=== PATIENT | male | born 1965 | race Caucasian/White ===

== ENCOUNTER 2016-12-26 10:37 | Emergency (ER) | payer BC, OTHER ==
[~2016-12-26] VITALS: Ht 177.8 cm; Wt 105.3 kg
[2016-12-26 10:38] VITALS: BP 149/94
[2016-12-26] MEDS ORDERED: LEVO30TA PO (10:59)
[2016-12-26] MEDS ORDERED: GABA-282 PO (10:59)
[2016-12-26] MEDS ORDERED: OMEP40CA2 PO (10:59)
[2016-12-26] MEDS ORDERED: PROP40TA PO (10:59)
[2016-12-26] MEDS ORDERED: BUSP30TA PO (10:59)
[2016-12-26] MEDS ORDERED: ATOR1TAB21 PO (10:59)
[2016-12-26] MEDS ORDERED: METF10004 PO (10:59)
[2016-12-26] MEDS ORDERED: NORT25CA2 PO (11:00)
[2016-12-26] MEDS ORDERED: NAPR500T PO (11:39)
[2016-12-26] MEDS ORDERED: PRED20TA PO (11:39)
[2016-12-26] MEDS ORDERED: AFRI0.0511 (11:39)
== END 2016-12-26 11:52 | disposition home or self-care (01) ==
LOC: M ED 10:37
DX: H69.93 Unspecified Eustachian tube disorder, bilateral (principal); H91.92 Unspecified hearing loss, left ear; Z87.891 Personal history of nicotine dependence; Z91.040 Latex allergy status; Z91.030 Bee allergy status; Z79.899 Other long term (current) drug therapy; Z79.84 Long term (current) use of oral hypoglycemic drugs

== ENCOUNTER 2017-08-21 14:07 | Emergency (ER) | payer BC, SELFPAY ==
[2017-08-21 16:24] LABS: BASO % 0.7 % (0.0-1.0); EOS # 0.1 10^3/uL (0.0-0.50); EOS % 2.3 % (0.0-3.0); HEMATOCRIT 40.8 % (42.0-52.0); HEMOGLOBIN 14.6 g/dl (14.0-18.0); IMMATURE GRANULOCYTE % 0.3 % (0-3.0); LYMPH # 2.2 10^3/uL (1.5-4.5); LYMPH % 36.5 % (24.0-44.0); MEAN CORPUSCULAR HEMOGLOBIN 31.9 pg (27.0-33.0); MEAN CORPUSCULAR HGB CONC 35.8 g/dl (32.0-36.5); MEAN CORPUSCULAR VOLUME 89.3 fl (80.0-96.0); MONO # 0.8 10^3/uL (0.0-0.8); MONO % 12.5 % (0.0-5.0); NEUTROPHILS # 2.9 10^3/uL (1.8-7.7); NEUTROPHILS % 47.7 % (36.0-66.0); PLATELET COUNT, AUTOMATED 167 10^3/uL (150-450); RED BLOOD COUNT 4.57 10^6/uL (4.30-6.10); RED CELL DISTRIBUTION WIDTH 12.1 % (11.5-14.5); WHITE BLOOD COUNT 6.1 10^3/uL (4.0-10.0)
[2017-08-21 16:34] LABS: INR 0.97
[2017-08-21 16:35] LABS: PARTIAL THROMBOPLASTIN TIME 30.7 SECONDS (26.8-37.9)
[2017-08-21 16:53] LABS: ALBUMIN 4.3 GM/DL (3.2-5.2); ALBUMIN/GLOBULIN RATIO 1.26 (1.00-1.93); ALKALINE PHOSPHATASE 103 U/L (45-117); ALT/SGPT 311 U/L (12-78); ANION GAP 9 MEQ/L (8-16); AST/SGOT 165 U/L (7-37); BILIRUBIN,DIRECT 0.3 MG/DL (0.0-0.2); BILIRUBIN,TOTAL 0.7 MG/DL (0.2-1.0); BLOOD UREA NITROGEN 8 MG/DL (7-18); CALCIUM LEVEL 9.2 MG/DL (8.5-10.1); CARBON DIOXIDE LEVEL 27 MEQ/L (21-32); CHLORIDE LEVEL 103 MEQ/L (98-107); CPK CREATINE PHOSPHOKINASE 238 U/L (39-308); CREATININE FOR GFR 0.88 MG/DL (0.70-1.30); GLOMERULAR FILTRATION RATE > 60.0 (>56); GLUCOSE, FASTING 128 MG/DL (70-100); LIPASE 131 U/L (73-393); POTASSIUM SERUM 3.8 MEQ/L (3.5-5.1); SODIUM LEVEL 139 MEQ/L (136-145); TOTAL PROTEIN 7.7 GM/DL (6.4-8.2); TROPONIN I < 0.02 NG/ML (< 0.10)
[2017-08-21 16:54] LABS: NT-PRO BNP 6 PG/ML (<125)
[2017-08-21 16:58] LABS: CK-MB VALUE MASS 1.4 NG/ML (0.0-3.6); FREE T4 1.29 NG/DL (0.76-1.46); MB/CK RELATIVE INDEX 0.58 (< OR =4)
[2017-08-22 08:28] LABS: BEDSIDE GLUCOSE 163 MG/DL (70-105)
== END 2017-08-21 18:08 | disposition home or self-care (01) ==
LOC: M ED 14:07
DX: R53.83 Other fatigue (principal); R79.89 Other specified abnormal findings of blood chemistry; R60.9 Edema, unspecified; I10 Essential (primary) hypertension; E78.5 Hyperlipidemia, unspecified; K21.9 Gastro-esophageal reflux disease without esophagitis; E03.9 Hypothyroidism, unspecified; Z86.73 Personal history of transient ischemic attack (TIA), and cerebral infarction without residual deficits; M54.2 Cervicalgia; K76.0 Fatty (change of) liver, not elsewhere classified; Z87.891 Personal history of nicotine dependence; Z91.040 Latex allergy status; Z91.030 Bee allergy status; Z79.899 Other long term (current) drug therapy; Z79.84 Long term (current) use of oral hypoglycemic drugs
CPT/HCPCS: 71046

== ENCOUNTER 2018-11-06 08:41 | Day surgery (SDC) | payer BC ==
[~2018-11-06] VITALS: Ht 177.8 cm; Wt 97.1 kg
[~2018-11-06 08:41] MED LIST: AFRI0.0511; AMLO2.5T3 PO; ATOR1TAB21 PO; BUSP30TA PO; GABA-843 PO; IRBE75TA5 PO; LEVO30TA PO; LEVO75TA4 PO; METF10004 PO; MONT10TA2 PO; NAPR-837 PO; NORT25CA2 PO; NS 1,000 ML IV ONE; OMEP40CA2 PO; PRED20TA PO; PROP40TA62 PO; RANI1TAB38 PO; SUCR1SUS PO; SUMA25TA3 PO; TRAM50TA2 PO
[2018-11-06] MEDS ORDERED: fentaNYL 100 MCG/2 ML INJECTION (J3010) As Ordered ONE (10:01)
[2018-11-06] MEDS ORDERED: LIDOCAINE 2% INJ 100 MG/5 ML SDV (FOR ANES.) As Ordered ONE (10:01)
[2018-11-06] MEDS ORDERED: PROPOFOL 500 MG/50 ML VIAL As Ordered ONE (10:01)
--- NOTE | 2018-11-06 10:37 | ROOR ---
Patient Name: Gio Mcfadden Procedure Date: 11/06/2018 9:47 AM Date of : 1965 Age: 53 Room: [facility] Gender: Male Note Status: Finalized Procedure: Upper GI endoscopy Indications: Epigastric abdominal pain, Abdominal pain in the right upper quadrant, Heartburn Providers: Dewey Simon MD Referring MD: Elisa Jackson DO Requesting Provider: Medicines: Monitored Anesthesia Care Complications: No immediate complications. Procedure: Pre-Anesthesia Assessment: - Prior to the procedure, a History and Physical was performed, and patient medications and allergies were reviewed. The patient is competent. The risks and benefits of the procedure and the sedation options and risks were discussed with the patient. All questions were answered and informed consent was obtained. Patient identification and proposed procedure were verified by the physician, the nurse and the anesthesiologist in the endoscopy suite. Mental Status Examination: alert and oriented. Airway Examination: normal oropharyngeal airway and neck mobility. Respiratory Examination: clear to auscultation. CV Examination: normal. Prophylactic Antibiotics: The patient does not require prophylactic antibiotics. Prior Anticoagulants: The patient has taken no previous anticoagulant or antiplatelet agents. ASA Grade Assessment: II - A patient with mild systemic disease. After reviewing the risks and benefits, the patient was deemed in satisfactory condition to undergo the procedure. The anesthesia plan was to use monitored anesthesia care (MAC). Immediately prior to administration of medications, the patient was re-assessed for adequacy to receive sedatives. The heart rate, respiratory rate, oxygen saturations, blood pressure, adequacy of pulmonary ventilation, and response to care were monitored throughout the procedure. The physical status of the patient was re-assessed after the procedure. The Endoscope was introduced through the mouth, and advanced to the second part of duodenum. The upper GI endoscopy was accomplished without difficulty. The patient tolerated the procedure well. Findings: The Z-line was irregular and was found 40 cm from the incisors. This was biopsied with a cold forceps for evaluation to rule out Nelson's Esophagus. Estimated blood loss was minimal. No gross lesions were noted in the entire examined stomach. This was biopsied with a cold forceps for Helicobacter pylori testing. Estimated blood loss was minimal. The duodenal bulb, first portion of the duodenum and second portion of the duodenum were normal. Impression: - Z-line irregular, 40 cm from the incisors. Biopsied. - No gross lesions in the stomach. Biopsied. - Normal duodenal bulb, first portion of the duodenum and second portion of the duodenum. Recommendation: - Discharge patient to home (ambulatory). - Use Protonix (pantoprazole) 40 mg PO daily for 6 weeks. Dewey Simon MD Dewey Simon MD 11/06/2018 10:36:55 AM Electronically signed by Dewey Simon MD Number of Addenda: 0 Note Initiated On: 11/06/2018 9:47 AM Estimated Blood Loss: Estimated blood loss was minimal.
--- NOTE | 2018-11-06 10:41 | ROOR ---
Patient Name: Gio Mcfadden Procedure Date: 11/06/2018 9:48 AM Date of : 1965 Age: 53 Room: [facility] Gender: Male Note Status: Finalized Procedure: Colonoscopy Indications: High risk colon cancer surveillance: Personal history of colonic polyps Providers: Dewey Simon MD Referring MD: Elisa Jackson DO Requesting Provider: Medicines: Monitored Anesthesia Care Complications: No immediate complications. Procedure: Pre-Anesthesia Assessment: - Prior to the procedure, a History and Physical was performed, and patient medications and allergies were reviewed. The patient is competent. The risks and benefits of the procedure and the sedation options and risks were discussed with the patient. All questions were answered and informed consent was obtained. Patient identification and proposed procedure were verified by the physician, the nurse and the anesthesiologist in the endoscopy suite. Mental Status Examination: alert and oriented. Airway Examination: normal oropharyngeal airway and neck mobility. Respiratory Examination: clear to auscultation. CV Examination: normal. ASA Grade Assessment: II - A patient with mild systemic disease. After reviewing the risks and benefits, the patient was deemed in satisfactory condition to undergo the procedure. The anesthesia plan was to use monitored anesthesia care (MAC). Immediately prior to administration of medications, the patient was re-assessed for adequacy to receive sedatives. The heart rate, respiratory rate, oxygen saturations, blood pressure, adequacy of pulmonary ventilation, and response to care were monitored throughout the procedure. The physical status of the patient was re-assessed after the procedure. The Colonoscope was introduced through the anus and advanced to 10 cm into the ileum. The colonoscopy was performed without difficulty. The patient tolerated the procedure well. The quality of the bowel preparation was adequate to identify polyps. Findings: The perianal and digital rectal examinations were normal. A 10 mm polyp was found in the sigmoid colon. The polyp was pedunculated. The polyp was removed with a hot snare. Resection and retrieval were complete. Estimated blood loss: none. A patchy area of mildly nodular mucosa was found in the sigmoid colon. Biopsies were taken with a cold forceps for histology. Estimated blood loss was minimal. The retroflexed view of the distal rectum and anal verge was normal and showed no anal or rectal abnormalities. Impression: - One 10 mm polyp in the sigmoid colon, removed with a hot snare. Resected and retrieved. - Nodular mucosa in the sigmoid colon. Biopsied. - The distal rectum and anal verge are normal on retroflexion view. Recommendation: - Discharge patient to home (ambulatory). - Repeat colonoscopy in 3 years for surveillance. Dewey Simon MD Dewey Simon MD 11/06/2018 10:41:20 AM Electronically signed by Dewey Simon MD Number of Addenda: 0 Note Initiated On: 11/06/2018 9:48 AM Estimated Blood Loss: Estimated blood loss was minimal.
[2018-11-06 11:01] VITALS: BP 118/73
== END 2018-11-06 11:01 | disposition home or self-care (01) ==
LOC: M OPP 08:41
PROVIDERS: ATTEND Surgery
DX: D12.5 Benign neoplasm of sigmoid colon (principal); K63.89 Other specified diseases of intestine; K22.8 Other specified diseases of esophagus; R10.13 Epigastric pain; R10.11 Right upper quadrant pain; R12 Heartburn; Z86.010 Personal history of colon polyps
CPT/HCPCS: 45380; 45385; 88305; J3010

== ENCOUNTER → 2018-12-30 | Outpatient (CLI) | payer BC ==
[~2018-12-30] MED LIST changes: -NS 1,000 ML IV ONE
--- NOTE | 2018-12-30 11:18 | REP ---
Hepatobiliary scan and gallbladder ejection fraction: History: Right upper quadrant pain Technique: 6.4 mCi of technetium-99m mebrofenin was injected and sequential anterior images are acquired. 65 minutes after the mebrofenin injection, the patient consumed 8 ounces Ensure and an additional 60 minutes of imaging was acquired. Regions of interest are plotted around the gallbladder. Findings: The initial hepatocellular parenchymal uptake phase is normal and homogeneous. Intra- and extra-hepatic bile ducts are labeled by the 10 -minute image. The gallbladder is first labeled on the 35 -minute image. There is normal washout from the liver parenchyma into the gallbladder and small intestine on subsequent images. The gallbladder ejection fraction is 63 %. Values greater than 35 % are considered normal with this technique. Impression: Normal hepatobiliary scan and normal gallbladder ejection fraction. Electronically Signed by Tin Brooks MD 12/30/2018 11:10 A
== END ==
LOC: M RAD 07:57
PROVIDERS: ATTEND Surgery
DX: R10.11 Right upper quadrant pain (principal)
CPT/HCPCS: 78227; A9537; J2805

== ENCOUNTER → 2019-04-21 | Outpatient (REF) | payer BC ==
[~2019-04-21] MED LIST changes: -OMEP40CA2 PO; +OMEP40CA97 PO
== END ==
LOC: M LAB REF 12:49
PROVIDERS: ATTEND Internal Medicine
DX: K76.0 Fatty (change of) liver, not elsewhere classified (principal); R74.8 Abnormal levels of other serum enzymes

== ENCOUNTER → 2019-05-13 | Outpatient (POV) | payer BC ==
[~2019-05-13] VITALS: Ht 177.8 cm; Wt 102.3 kg
[2019-05-13 14:05] VITALS: BP 139/82
--- NOTE | 2019-05-14 09:56 | IRPN ---
[facility] IR Progress Note IR Progress Note DATE: May 13, 2019 Patient referred to [facility] for percutaneous liver biopsy. Nothing to bill for this visit; visit scheduled in error. Allergies Coded Allergies: latex (Verified Allergy, Severe, hives, 10/30/18) adverse reaction to kiwi -anaphylaxis Uncoded Allergies: BEE VENOM (Allergy, Severe, difficulty breathing, eyes/throat swell, 10/30/18) VS,Fishbone, I+O VS, Fishbone, I+O Vital Signs Date Time Temp Pulse Resp B/P (MAP) Pulse Ox O2 Delivery O2 Flow Rate FiO2 05/13/19 14:05 97.5 83 16 139/82 (101) 95 Room Air MARIN HOWARD MD May 14, 2019 09:56
== END ==
LOC: M IRPOV 13:56
PROVIDERS: ATTEND Radiology Diagnostic Radiology
DX: K76.9 Liver disease, unspecified (principal)

== ENCOUNTER → 2019-05-19 | Outpatient (CLI) | payer BC ==
[~2019-05-19] MED LIST changes: +LIDOCAINE 1% MDV 20ML VIAL As Ordered ONE
[2019-05-19 13:29] VITALS: BP 157/68
--- NOTE | 2019-05-19 13:57 | REP ---
Ultrasound-guided liver biopsy This procedure was performed by Tiffanie Mayfield [facility], under the direct supervision of Dr. Brooks. The risks and benefits of the procedure were explained to the patient and informed consent was obtained both verbally and written. Directly prior to the start of the procedure, a formal timeout was done in the procedure room. The left lobe of the liver was localized using ultrasound guidance. The skin was prepped and draped in a sterile fashion. 12 ml of 1% lidocaine 10 mg/ml was used as a local anesthetic. Using ultrasound guidance a small skin cristino was made and a 19/20 gauge coaxial needle biopsy system was inserted and advanced into the liver. 4 core biopsy samples were obtained and sent to the lab. The patient tolerated the procedure well and there were no immediate complications. After the appropriate monitored convalescence the patient was discharged home from the department. Reviewed by NAINA Chavez 05/19/2019 01:25 P Electronically Signed by Tin Brooks MD 05/19/2019 01:49 P
== END ==
LOC: M IRPRO 10:37
PROVIDERS: ATTEND Radiology Diagnostic Radiology
DX: K75.81 Nonalcoholic steatohepatitis (NASH) (principal)

== ENCOUNTER → 2019-07-01 | Outpatient (REF) | payer BC ==
[~2019-07-01] MED LIST changes: -LIDOCAINE 1% MDV 20ML VIAL As Ordered ONE; +SUCR1ORA PO; -SUCR1SUS PO
[2019-07-01 17:52] LABS: ALBUMIN 4.5 GM/DL (3.2-5.2); ALT/SGPT 220 U/L (12-78); BILIRUBIN,TOTAL 0.8 MG/DL (0.2-1.0); BLOOD UREA NITROGEN 18 MG/DL (7-18); CALCIUM LEVEL 9.8 MG/DL (8.5-10.1); CARBON DIOXIDE LEVEL 28 MEQ/L (21-32); CHLORIDE LEVEL 103 MEQ/L (98-107); CHOLESTEROL LEVEL 210 MG/DL (<200); CREATININE FOR GFR 0.96 MG/DL (0.70-1.30); FREE T4 1.41 NG/DL (0.76-1.46); GLOMERULAR FILTRATION RATE > 60.0 (>56); GLUCOSE, FASTING 137 MG/DL (70-100); HDL CHOLESTEROL 30 MG/DL (>40); LDL CHOLESTEROL 125 MG/DL (<100); NON-HDL-C 180 MG/DL; POTASSIUM SERUM 3.7 MEQ/L (3.5-5.1); SODIUM LEVEL 137 MEQ/L (136-145); TOTAL PROTEIN 7.5 GM/DL (6.4-8.2); TRIGLYCERIDES LEVEL 277 MG/DL (<150)
[2019-07-01 17:57] LABS: HEMOGLOBIN A1c 8.2 %
[2019-07-01 18:10] LABS: BASO # 0.1 10^3/uL (0.0-0.2); BASO % 0.7 % (0.0-1.0); EOS # 0.1 10^3/uL (0.0-0.5); EOS % 1.5 % (0.0-3.0); HEMATOCRIT 46.5 % (42.0-52.0); HEMOGLOBIN 15.5 g/dl (13.5-17.5); LYMPH # 2.7 10^3/uL (1.5-5.0); LYMPH % 40.4 % (24.0-44.0); MEAN CORPUSCULAR HEMOGLOBIN 31.7 pg (27.0-33.0); MEAN CORPUSCULAR HGB CONC 33.3 g/dl (32.0-36.5); MEAN CORPUSCULAR VOLUME 95.1 fl (80.0-96.0); MONO # 0.5 10^3/uL (0.0-0.8); MONO % 7.8 % (0.0-5.0); NEUTROPHILS # 3.3 10^3/uL (1.5-8.5); NEUTROPHILS % 49.3 % (36.0-66.0); PLATELET COUNT, AUTOMATED 170 10^3/uL (150-450); RED BLOOD COUNT 4.89 10^6/uL (4.30-6.10); WHITE BLOOD COUNT 6.8 10^3/uL (4.0-10.0)
[2019-07-01 18:17] LABS: CREATININE, URINE 95.8 MG/DL; MALB URINE SIEMENS 17.1 MG/L; MAU/CREAT RATIO 17.8 MCG/MG (0.0-30.0)
== END ==
LOC: M SFHCPLAZ 14:52
PROVIDERS: ATTEND Nurse Practitioner Family
DX: I10 Essential (primary) hypertension (principal); E11.9 Type 2 diabetes mellitus without complications; E03.9 Hypothyroidism, unspecified; E78.5 Hyperlipidemia, unspecified

== ENCOUNTER → 2019-11-04 | Outpatient (REF) | payer BC ==
[~2019-11-04] MED LIST changes: +IRBE75TA4 PO; -IRBE75TA5 PO; -MONT10TA2 PO; +MONT10TA4 PO
[2019-11-04 11:03] LABS: HEMATOCRIT 50.6 % (42.0-52.0)
[2019-11-04 11:38] LABS: HEMOGLOBIN A1c 7.2 %
[2019-11-04 12:40] LABS: ALBUMIN 4.5 GM/DL (3.2-5.2); ALT/SGPT 92 U/L (12-78); BLOOD UREA NITROGEN 18 MG/DL (7-18); CALCIUM LEVEL 10.2 MG/DL (8.5-10.1); CARBON DIOXIDE LEVEL 30 MEQ/L (21-32); CHLORIDE LEVEL 105 MEQ/L (98-107); CHOLESTEROL LEVEL 194 MG/DL (<200); CHOLESTEROL RISK RATIO 5.105 (<5); CREATININE FOR GFR 1.12 MG/DL (0.70-1.30); FREE T4 1.47 NG/DL (0.76-1.46); GLOMERULAR FILTRATION RATE > 60.0 (>56); GLUCOSE, FASTING 139 MG/DL (70-100); HDL CHOLESTEROL 38 MG/DL (>40); LDL CHOLESTEROL 117 MG/DL (<100); NON-HDL-C 156 MG/DL; POTASSIUM SERUM 4.7 MEQ/L (3.5-5.1); SODIUM LEVEL 140 MEQ/L (136-145); TOTAL PROTEIN 7.9 GM/DL (6.4-8.2); TRIGLYCERIDES LEVEL 194 MG/DL (<150)
[2019-11-04 12:44] LABS: TOTAL 25(OH) VITAMIN D 33.5 NG/ML (30.0-100.0); VITAMIN B12 LEVEL 1101 PG/ML (247-911)
[2019-11-05 13:07] LABS: PSA TOTAL 1.8 ng/mL (0.0-4.0)
[2019-11-05 19:07] LABS: TESTOSTERONE FREE (DIRECT) 9.1 pg/mL (7.2-24.0)
== END ==
LOC: M PLALAB 08:17
PROVIDERS: ATTEND Nurse Practitioner Family
DX: E03.9 Hypothyroidism, unspecified (principal); E11.9 Type 2 diabetes mellitus without complications; E78.5 Hyperlipidemia, unspecified; N52.9 Male erectile dysfunction, unspecified; E53.8 Deficiency of other specified B group vitamins; E55.9 Vitamin D deficiency, unspecified

== ENCOUNTER → 2019-11-27 | Outpatient (CLI) | payer BC ==
--- NOTE | 2019-11-27 14:43 | REPPI ---
CERVICAL SPINE SERIES: Eight views. HISTORY: Cluster headache. FINDINGS: Lateral views done in flexion, extension and neutral position show normal alignment. There is some straightening. No subluxation or instability is seen. Vertebral body heights are preserved. Degenerative disc narrowing and osteophyte formation is seen at C4-5 and C5-6. Oblique images demonstrate normally aligned facets bilaterally at each cervical level. There is mild uncovertebral spurring on the left at C4-5 and C5-6 and on the right at C4-5 and C5-6 as well. There is a small metallic foreign body in the anterior soft tissues of the neck superficial to the hyoid bone. This is seen to the right of midline. IMPRESSION: Degenerative disc changes as noted above. Mild uncovertebral spurring. No acute abnormality. Electronically Signed by Tin Brooks MD 11/27/2019 03:06 P
== END ==
LOC: M PLAIMG 12:03
PROVIDERS: ATTEND Physician Assistant Medical
DX: G44.009 Cluster headache syndrome, unspecified, not intractable (principal); M50.321 Other cervical disc degeneration at C4-C5 level; M50.322 Other cervical disc degeneration at C5-C6 level; M46.02 Spinal enthesopathy, cervical region

== ENCOUNTER → 2019-11-27 | Outpatient (REF) | payer BC ==
[2019-11-27 15:37] LABS: FOLLICLE STIMULATING HORMONE 3.3 mIU/mL (1.4-18.1); LUTEINIZING HORMONE 2.6 mIU/mL (1.5-9.3); PROLACTIN 4.3 NG/ML (2.1-17.7)
[2019-11-28 17:07] LABS: TESTOSTERONE FREE (DIRECT) 5.7 pg/mL (7.2-24.0)
== END ==
LOC: M SFHCPLAZ 12:00
PROVIDERS: ATTEND Physician Assistant Medical
DX: N52.9 Male erectile dysfunction, unspecified (principal)

== ENCOUNTER → 2020-03-25 | Outpatient (REF) | payer BC ==
[2020-03-25 10:33] LABS: BASO % 0.6 % (0.0-1.0); EOS # 0.1 10^3/uL (0.0-0.5); EOS % 1.8 % (0.0-3.0); HEMATOCRIT 47.3 % (42.0-52.0); HEMOGLOBIN 15.7 g/dl (13.5-17.5); LYMPH # 2.8 10^3/uL (1.5-5.0); MEAN CORPUSCULAR HEMOGLOBIN 30.3 pg (27.0-33.0); MEAN CORPUSCULAR HGB CONC 33.2 g/dl (32.0-36.5); MEAN CORPUSCULAR VOLUME 91.3 fl (80.0-96.0); MONO # 0.7 10^3/uL (0.0-0.8); MONO % 10.1 % (0.0-5.0); NEUTROPHILS # 3.5 10^3/uL (1.5-8.5); NEUTROPHILS % 48.2 % (36.0-66.0); PLATELET COUNT, AUTOMATED 182 10^3/uL (150-450); RED BLOOD COUNT 5.18 10^6/uL (4.30-6.10); WHITE BLOOD COUNT 7.2 10^3/uL (4.0-10.0)
[2020-03-25 10:44] LABS: ALBUMIN 4.1 GM/DL (3.2-5.2); ALT/SGPT 97 U/L (12-78); BILIRUBIN,TOTAL 0.6 MG/DL (0.2-1.0); BLOOD UREA NITROGEN 19 MG/DL (7-18); CALCIUM LEVEL 9.6 MG/DL (8.5-10.1); CARBON DIOXIDE LEVEL 28 MEQ/L (21-32); CHLORIDE LEVEL 104 MEQ/L (98-107); CREATININE FOR GFR 1.09 MG/DL (0.70-1.30); GLOMERULAR FILTRATION RATE > 60.0 (>56); GLUCOSE, FASTING 177 MG/DL (70-100); POTASSIUM SERUM 4.3 MEQ/L (3.5-5.1); SODIUM LEVEL 139 MEQ/L (136-145); TOTAL PROTEIN 7.1 GM/DL (6.4-8.2)
[2020-03-25 10:46] LABS: PTH INTACT 33.5 PG/ML (18.5-88.0); TOTAL 25(OH) VITAMIN D 25.3 NG/ML (30.0-100.0)
[2020-03-25 11:11] LABS: HEMOGLOBIN A1c 6.5 %
== END ==
LOC: M PLALAB 08:08
PROVIDERS: ATTEND Nurse Practitioner Family
DX: I10 Essential (primary) hypertension (principal); E78.5 Hyperlipidemia, unspecified; E11.9 Type 2 diabetes mellitus without complications; Z12.5 Encounter for screening for malignant neoplasm of prostate; E55.9 Vitamin D deficiency, unspecified

== ENCOUNTER → 2020-05-21 | Outpatient (CLI) | payer BC ==
[~2020-05-21] MED LIST changes: -MONT10TA4 PO; +MONT5TAB2 PO
--- NOTE | 2020-05-21 12:01 | REPVR ---
PROCEDURE INFORMATION: Exam: MR Cervical Spine Without Contrast Exam date and time: 05/21/2020 9:39 AM Age: 54 years old Clinical indication: Condition or disease; Osteoarthritis; With radiculopathy; Cervical region; Additional info: Osteoarthritis of spine TECHNIQUE: Imaging protocol: Multiplanar magnetic resonance images of the cervical spine without contrast. COMPARISON: CR SPINE CERVICAL COMPLETE 11/27/2019 12:30 PM FINDINGS: Vertebrae: Anatomic alignment. No acute fracture seen. Spinal cord: Normal signal. There is disc desiccation throughout. Disc height loss and spondylosis is [id number] at C4-C5 and C5-C6, mild at C3-C4 and C6-C7. C2-C3: The central spinal canal is patent. Uncovertebral and facet arthropathy, in particular left uncovertebral osteophyte causing mild left neural foraminal stenosis. No significant right neural foraminal narrowing. C3-C4: Cranially migrating central disc extrusion measures approximately 3 mm in AP dimension, extends 5 mm above disc space indenting ventral thecal sac as well as ventral cervical cord but not contributing to cord myelopathy. This is superimposed on diffuse disc osteophyte complex. Central spinal canal stenosis is moderate. Uncovertebral and facet arthropathy causing severe right and moderate left neural foraminal stenoses. C4-C5: Disc osteophyte complex causes mild central spinal canal stenosis. Uncovertebral and facet arthropathy causing severe bilateral neural foraminal stenoses. C5-C6: Disc osteophyte complex and ligamentum flavum buckling causing mild central spinal canal stenosis. Uncovertebral and facet arthropathy causing severe bilateral neural foraminal stenoses. C6-C7: 3 mm central disc protrusion as well as mild posterior ligamentum flavum buckling causing mild central spinal canal stenosis. Uncovertebral and facet arthropathy causing moderate to severe left and mild right neural foraminal stenoses. C7-T1: No significant disc disease. No significant spinal stenosis. Vertebral arteries: Relative loss of flow void for the right vertebral artery may reflect developmental hypoplasia or occlusion. Soft tissues: Unremarkable. IMPRESSION: 1. Moderate central spinal canal stenosis at C3-C4 where there is a central disc extrusion. 2. Mild central spinal canal stenoses elsewhere. 3. Multilevel high-grade neural foraminal stenoses due to uncovertebral and facet arthropathy, detailed above. Electronically signed by: Sharee Velázquez On 05/21/2020 12:00:56 PM
== END ==
LOC: M PLARAD 08:59
PROVIDERS: ATTEND Nurse Practitioner Family
DX: M47.22 Other spondylosis with radiculopathy, cervical region (principal)

== ENCOUNTER → 2020-07-22 | Outpatient (REF) | payer BC ==
[~2020-07-22] MED LIST changes: +GABA-282 PO; -GABA-843 PO; +MONT10TA10 PO; -MONT5TAB2 PO
[2020-07-22 10:21] LABS: BASO % 0.5 % (0.0-1.0); EOS # 0.1 10^3/uL (0.0-0.5); EOS % 1.6 % (0.0-3.0); HEMATOCRIT 46.5 % (42.0-52.0); HEMOGLOBIN 15.3 g/dl (13.5-17.5); LYMPH # 3.1 10^3/uL (1.5-5.0); LYMPH % 41.5 % (24.0-44.0); MEAN CORPUSCULAR HEMOGLOBIN 30.2 pg (27.0-33.0); MEAN CORPUSCULAR HGB CONC 32.9 g/dl (32.0-36.5); MEAN CORPUSCULAR VOLUME 91.9 fl (80.0-96.0); MONO # 0.7 10^3/uL (0.0-0.8); MONO % 9.2 % (2.0-8.0); NEUTROPHILS # 3.4 10^3/uL (1.5-8.5); NEUTROPHILS % 46.7 % (36.0-66.0); PLATELET COUNT, AUTOMATED 181 10^3/uL (150-450); RED BLOOD COUNT 5.06 10^6/uL (4.30-6.10); WHITE BLOOD COUNT 7.4 10^3/uL (4.0-10.0)
[2020-07-22 10:56] LABS: ALBUMIN 4.3 GM/DL (3.2-5.2); ALT/SGPT 119 U/L (12-78); BILIRUBIN,TOTAL 1.1 MG/DL (0.2-1.0); BLOOD UREA NITROGEN 21 MG/DL (7-18); CALCIUM LEVEL 9.8 MG/DL (8.5-10.1); CARBON DIOXIDE LEVEL 27 MEQ/L (21-32); CHLORIDE LEVEL 104 MEQ/L (98-107); CHOLESTEROL LEVEL 184 MG/DL (<200); CHOLESTEROL RISK RATIO 4.972 (<5); CREATININE FOR GFR 1.29 MG/DL (0.70-1.30); CREATININE, URINE 91.1 MG/DL; FREE T4 1.32 NG/DL (0.76-1.46); GLOMERULAR FILTRATION RATE > 60.0 (>56); GLUCOSE, FASTING 219 MG/DL (70-100); HDL CHOLESTEROL 37 MG/DL (>40); LDL CHOLESTEROL 120 MG/DL (<100); MALB URINE SIEMENS 22.5 MG/L; MAU/CREAT RATIO 24.6 MCG/MG (0.0-30.0); NON-HDL-C 147 MG/DL; POTASSIUM SERUM 4.2 MEQ/L (3.5-5.1); SODIUM LEVEL 139 MEQ/L (136-145); TOTAL 25(OH) VITAMIN D 33.9 NG/ML (30.0-100.0); TOTAL PROTEIN 7.1 GM/DL (6.4-8.2); TRIGLYCERIDES LEVEL 135 MG/DL (<150); VITAMIN B12 LEVEL > 2000 PG/ML (247-911)
[2020-07-22 11:30] LABS: HEMOGLOBIN A1c 7.9 %
== END ==
LOC: M PLALAB 08:07
PROVIDERS: ATTEND Nurse Practitioner Family
DX: E53.8 Deficiency of other specified B group vitamins (principal); E11.9 Type 2 diabetes mellitus without complications; E03.9 Hypothyroidism, unspecified; E78.5 Hyperlipidemia, unspecified; E55.9 Vitamin D deficiency, unspecified

== ENCOUNTER → 2020-07-28 | Outpatient (CLI) | payer BC ==
[~2020-07-28] MED LIST changes: +ATOR1TAB21; +CYCL-707 PO; +IRBE150T7; +JARD1TAB3; +KETO10TAB PO; +LEVO100T5; +METF-838; +METH-1164; +PANT40TA29; +SITA50TAB
--- NOTE | 2020-07-28 10:35 | REPPI ---
INDICATION: MID BACK PAIN. COMPARISON: Comparison is made with chest radiographs from August 21, 2017.. TECHNIQUE: Three views. FINDINGS: Thoracic vertebral body heights are preserved. Alignment is normal. Disc spaces are maintained. pedicles and posterior elements are intact. There is a minimal levoconvex curve in the thoracic spine. No paravertebral soft tissue mass is appreciated. Visualized lung ahumada are clear. There is mild discogenic spurring on the right at T8-9. IMPRESSION: No acute bony abnormality. <Electronically signed by Robinson Brooks > 07/28/20 [id number]
== END ==
LOC: M PLAIMG 08:05
PROVIDERS: ATTEND Nurse Practitioner Family
DX: M54.9 Dorsalgia, unspecified (principal)

== ENCOUNTER 2020-08-02 06:33 | Emergency (ER) | payer BC, MEDICAID ==
[~2020-08-02] VITALS: Ht 177.8 cm; Wt 100.0 kg
[~2020-08-02 06:33] MED LIST changes: -ATOR1TAB21; -CYCL-707 PO; -IRBE150T7; -JARD1TAB3; -KETO10TAB PO; -LEVO100T5; -METF-838; -METH-1164; -PANT40TA29; -SITA50TAB
[2020-08-02 06:34] VITALS: BP 135/93
[2020-08-02] MEDS ORDERED: METH-1164 (06:52)
[2020-08-02] MEDS ORDERED: PANT40TA29 (06:52)
[2020-08-02] MEDS ORDERED: IRBE150T7 (06:52)
[2020-08-02] MEDS ORDERED: JARD1TAB3 (06:52)
[2020-08-02] MEDS ORDERED: METF-838 (06:52)
[2020-08-02] MEDS ORDERED: ATOR1TAB21 (06:52)
[2020-08-02] MEDS ORDERED: LEVO100T5 (06:52)
[2020-08-02] MEDS ORDERED: SITA50TAB (06:52)
[2020-08-02] MEDS ORDERED: ACETAMINOPHEN 500 MG TAB PO ONE (07:10)
[2020-08-02] MEDS ORDERED: KETOROLAC 60MG 2ML VIAL IM ONE (07:10)
[2020-08-02] MEDS ORDERED: KETO10TAB PO (07:52)
[2020-08-02] MEDS ORDERED: CYCL-707 PO (07:52)
== END 2020-08-02 07:58 | disposition home or self-care (01) ==
LOC: M ED 06:33
DX: S39.012A Strain of muscle, fascia and tendon of lower back, initial encounter (principal); X58.XXXA Exposure to other specified factors, initial encounter; Y92.89 Other specified places as the place of occurrence of the external cause; E11.9 Type 2 diabetes mellitus without complications; E78.5 Hyperlipidemia, unspecified; Z91.030 Bee allergy status; Z91.040 Latex allergy status; Z79.899 Other long term (current) drug therapy; Z79.84 Long term (current) use of oral hypoglycemic drugs
CPT/HCPCS: 96372; 99282; J1885

== ENCOUNTER → 2020-08-04 | Outpatient (CLI) | payer BC, MEDICAID ==
[~2020-08-04] MED LIST changes: +ATOR1TAB21; +CYCL-707 PO; +IRBE150T7; +JARD1TAB3; +KETO10TAB PO; +LEVO100T5; +METF-838; +METH-1164; +PANT40TA29; +SITA50TAB
--- NOTE | 2020-08-04 09:51 | REPPI ---
INDICATION: BACK PAIN WITH RADIATION COMPARISON: None. TECHNIQUE: AP, lateral, bilateral oblique, and coned-down views of the lumbar spine. FINDINGS: Alignment and lordosis maintained. Vertebral bodies are intact and there is no evidence for acute fracture or subluxation. Moderate/early advanced multilevel degenerative changes include endplate sclerosis, spurring/early osteophyte formation, disc space narrowing and facet arthropathy. Chronic L5 spondylolysis without spondylolisthesis cannot be excluded. IMPRESSION: Moderate to early advanced multilevel degenerative spondylosis. <Electronically signed by Inocente Daniels > 08/04/20 [id number]
== END ==
LOC: M PLAIMG 08:57
PROVIDERS: ATTEND Nurse Practitioner Family
DX: M47.816 Spondylosis without myelopathy or radiculopathy, lumbar region (principal); M51.36 Other intervertebral disc degeneration, lumbar region; M54.9 Dorsalgia, unspecified

== ENCOUNTER → 2020-08-11 | Outpatient (CLI) | payer BC, MEDICAID ==
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
== END ==
LOC: M PAIN 08:30
PROVIDERS: ATTEND Nurse Practitioner Family
DX: M50.20 Other cervical disc displacement, unspecified cervical region (principal); G44.009 Cluster headache syndrome, unspecified, not intractable; E11.42 Type 2 diabetes mellitus with diabetic polyneuropathy; E78.5 Hyperlipidemia, unspecified; E03.9 Hypothyroidism, unspecified; K21.9 Gastro-esophageal reflux disease without esophagitis; I10 Essential (primary) hypertension; F14.21 Cocaine dependence, in remission; K76.0 Fatty (change of) liver, not elsewhere classified; F41.1 Generalized anxiety disorder; Z87.891 Personal history of nicotine dependence; Z79.84 Long term (current) use of oral hypoglycemic drugs; Z79.891 Long term (current) use of opiate analgesic; Z79.82 Long term (current) use of aspirin; Z79.899 Other long term (current) drug therapy; Z88.8 Allergy status to other drugs, medicaments and biological substances; Z91.040 Latex allergy status

== ENCOUNTER → 2020-08-12 | Outpatient (CLI) | payer BC ==
--- NOTE | 2020-08-12 11:25 | REP ---
INDICATION: MYELOPATHY. COMPARISON: Comparison MRI study May 21, 2020.. TECHNIQUE: Helical scanning is acquired and overlapping 2 mm high resolution axial images were generated and reviewed at bone and soft tissue window settings. Coronal and sagittal multiplanar re-formations images are generated. FINDINGS: There is straightening of the normal cervical lordosis. Vertebral body heights are preserved. Alignment is otherwise normal. No bony destructive lesion is seen. No fracture or collapse is noted. At C2-3, there is no significant finding. Minimal central disc bulging. No neural foraminal narrowing is seen. At C3-4, there is degenerative disc narrowing. There is bilateral uncovertebral spurring producing mild neural foraminal narrowing. The central disc protrusion identified by MRI study is observed and felt to be unchanged although it is less conspicuous than it was on MRI scan. At C4-5, there is diffuse disc bulging and posterior osteophytic ridging. Bilateral uncovertebral spurring is noted, left a little more prominently than right. There is a small vacuum phenomena at the right posterior disc margin. At C5-C6, there is degenerative disc narrowing and posterior osteophytic ridging. There is diffuse disc bulging narrowing the thecal sac. Bilateral uncovertebral spurring and neural foraminal narrowing is present at C5-6 as seen on MRI study. On the left at C5-6 there is a prominent spur projecting posteriorly and inferiorly from the superior endplate of C6 indenting the spinal canal on the left side posteriorly. This is better seen by CT than by MR. At C6-C7, there is mild degenerative narrowing. No neural foraminal narrowing or cyst disc bulge is seen. The C7-T1 level there is no significant finding. IMPRESSION: Advanced degenerative spondylosis as above. Multilevel uncovertebral spurring and neural foraminal narrowing. Central disc protrusion C3-4. Eccentric left posterior spur at C5-6.. <Electronically signed by Robinson Brooks > 08/12/20 [id number]
== END ==
LOC: M RAD 10:16
PROVIDERS: ATTEND Neurological Surgery
DX: M25.78 Osteophyte, vertebrae (principal); M50.31 Other cervical disc degeneration, high cervical region; M50.221 Other cervical disc displacement at C4-C5 level; M50.322 Other cervical disc degeneration at C5-C6 level; M50.323 Other cervical disc degeneration at C6-C7 level

== ENCOUNTER → 2020-09-07 | Outpatient (REF) | payer OTHER ==
[2020-09-07 15:45] LABS: APPEARANCE, URINE CLEAR (CLEAR); BACTERIA, URINE AUTO NEGATIVE (NEGATIVE); BILIRUBIN, URINE AUTO NEGATIVE (NEGATIVE); BLOOD, URINE BLOOD NEGATIVE (NEGATIVE); COLOR, URINE YELLOW (YELLOW); GLUCOSE, URINE (UA) AUTO 3+ mg/dL (NEGATIVE); KETONE, URINE AUTO NEGATIVE (NEGATIVE); LEUKOCYTE ESTERASE, URINE AUTO NEGATIVE (NEGATIVE); MUCUS, URINE SMALL (NEGATIVE); NITRITE, URINE AUTO NEGATIVE (NEGATIVE); PROTEIN, URINE AUTO NEGATIVE (NEGATIVE); RBC, URINE AUTO 0 /HPF (0-3); SPECIFIC GRAVITY URINE AUTO 1.023 (1.002-1.035); SQUAMOUS EPITHELIAL CELL UR AU 0 /HPF (0-6); UROBILINOGEN, URINE AUTO 0.2 mg/dL (0.0-2.0); WBC, URINE AUTO 0 /HPF (0-3)
[2020-09-07 15:47] LABS: BASO % 0.4 % (0.0-1.0); EOS # 0.2 10^3/uL (0.0-0.5); EOS % 1.6 % (0.0-3.0); HEMATOCRIT 48.4 % (42.0-52.0); HEMOGLOBIN 16.2 g/dl (13.5-17.5); LYMPH # 3.6 10^3/uL (1.5-5.0); LYMPH % 38.3 % (24.0-44.0); MEAN CORPUSCULAR HEMOGLOBIN 30.9 pg (27.0-33.0); MEAN CORPUSCULAR HGB CONC 33.5 g/dl (32.0-36.5); MEAN CORPUSCULAR VOLUME 92.2 fl (80.0-96.0); MONO # 0.8 10^3/uL (0.0-0.8); MONO % 8.8 % (2.0-8.0); NEUTROPHILS # 4.7 10^3/uL (1.5-8.5); NEUTROPHILS % 50.5 % (36.0-66.0); PLATELET COUNT, AUTOMATED 191 10^3/uL (150-450); RED BLOOD COUNT 5.25 10^6/uL (4.30-6.10); WHITE BLOOD COUNT 9.3 10^3/uL (4.0-10.0)
[2020-09-07 15:56] LABS: INR 1.03; PROTHROMBIN TIME 13.7 SECONDS (12.5-14.3)
[2020-09-07 15:57] LABS: PARTIAL THROMBOPLASTIN TIME 31.5 SECONDS (24.2-38.5)
[2020-09-07 16:14] LABS: ALBUMIN 4.2 GM/DL (3.2-5.2); ALT/SGPT 82 U/L (12-78); BILIRUBIN,TOTAL 0.7 MG/DL (0.2-1.0); BLOOD UREA NITROGEN 18 MG/DL (7-18); CALCIUM LEVEL 9.8 MG/DL (8.5-10.1); CARBON DIOXIDE LEVEL 27 MEQ/L (21-32); CHLORIDE LEVEL 105 MEQ/L (98-107); CREATININE FOR GFR 1.18 MG/DL (0.70-1.30); GLOMERULAR FILTRATION RATE > 60.0 (>56); GLUCOSE, FASTING 103 MG/DL (70-100); POTASSIUM SERUM 4.3 MEQ/L (3.5-5.1); SODIUM LEVEL 140 MEQ/L (136-145); TOTAL PROTEIN 7.1 GM/DL (6.4-8.2)
== END ==
LOC: M SFHCPLAZ 14:36
PROVIDERS: ATTEND Family Medicine
DX: Z01.818 Encounter for other preprocedural examination (principal); K74.60 Unspecified cirrhosis of liver

== ENCOUNTER → 2020-09-07 | Outpatient (CLI) | payer BC ==
--- NOTE | 2020-09-08 03:09 | REPPI ---
INDICATION: Z01.818 PRE OP EVALUTATION COMPARISON: 08/21/2017 TECHNIQUE: PA and lateral. FINDINGS: The mediastinum and cardiac silhouette are normal. The lung ahumada are clear and without acute consolidation, effusion, or pneumothorax. The skeletal structures are intact and normal. IMPRESSION: No acute cardiopulmonary process. <Electronically signed by Inocente Daniels > 09/08/20 [id number]
== END ==
LOC: M PLAIMG 14:36
PROVIDERS: ATTEND Family Medicine
DX: Z01.818 Encounter for other preprocedural examination (principal)

== ENCOUNTER → 2020-10-11 | Outpatient (REF) | payer OTHER ==
[2020-10-11 10:51] LABS: HEMOGLOBIN A1c 6.3 %
[2020-10-11 11:14] LABS: ALBUMIN 4.3 GM/DL (3.2-5.2); ALT/SGPT 61 U/L (12-78); BLOOD UREA NITROGEN 21 MG/DL (7-18); CALCIUM LEVEL 10.1 MG/DL (8.5-10.1); CARBON DIOXIDE LEVEL 27 MEQ/L (21-32); CHLORIDE LEVEL 102 MEQ/L (98-107); CHOLESTEROL LEVEL 170 MG/DL (<200); CREATININE FOR GFR 1.12 MG/DL (0.70-1.30); GLOMERULAR FILTRATION RATE > 60.0 (>56); GLUCOSE, FASTING 111 MG/DL (70-100); HDL CHOLESTEROL 34 MG/DL (>40); LDL CHOLESTEROL 86 MG/DL (<100); NON-HDL-C 136 MG/DL; POTASSIUM SERUM 3.9 MEQ/L (3.5-5.1); SODIUM LEVEL 136 MEQ/L (136-145); TOTAL PROTEIN 7.6 GM/DL (6.4-8.2); TRIGLYCERIDES LEVEL 252 MG/DL (<150)
[2020-10-11 11:17] LABS: TOTAL 25(OH) VITAMIN D 27.4 NG/ML (30.0-100.0); VITAMIN B12 LEVEL > 2000 PG/ML (247-911)
== END ==
LOC: M PLALAB 08:06
PROVIDERS: ATTEND Nurse Practitioner Family
DX: K74.60 Unspecified cirrhosis of liver (principal); E11.9 Type 2 diabetes mellitus without complications; E03.9 Hypothyroidism, unspecified; E78.5 Hyperlipidemia, unspecified; E55.9 Vitamin D deficiency, unspecified; E53.8 Deficiency of other specified B group vitamins

== ENCOUNTER → 2020-11-11 | Outpatient (CLI) | payer OTHER, MEDICAID ==
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
== END ==
LOC: M PAIN 09:00
PROVIDERS: ATTEND Nurse Practitioner Family
DX: M50.20 Other cervical disc displacement, unspecified cervical region (principal); E11.42 Type 2 diabetes mellitus with diabetic polyneuropathy; E78.5 Hyperlipidemia, unspecified; E03.9 Hypothyroidism, unspecified; K21.9 Gastro-esophageal reflux disease without esophagitis; I10 Essential (primary) hypertension; F14.21 Cocaine dependence, in remission; K76.0 Fatty (change of) liver, not elsewhere classified; F41.1 Generalized anxiety disorder; Z87.891 Personal history of nicotine dependence; Z79.84 Long term (current) use of oral hypoglycemic drugs; Z79.891 Long term (current) use of opiate analgesic; Z79.899 Other long term (current) drug therapy; Z88.8 Allergy status to other drugs, medicaments and biological substances; Z91.040 Latex allergy status

== ENCOUNTER → 2021-03-16 | Outpatient (CLI) | payer OTHER, MEDICAID ==
[~2021-03-16] MED LIST changes: +OMEP40CA4 PO; -OMEP40CA97 PO
[2021-03-16 11:19] LABS: HEMOGLOBIN A1c 6.1 %
[2021-03-16 11:29] LABS: ALBUMIN 3.9 GM/DL (3.2-5.2); ALT/SGPT 77 U/L (12-78); BILIRUBIN,TOTAL 1.2 MG/DL (0.2-1.0); BLOOD UREA NITROGEN 16 MG/DL (7-18); CALCIUM LEVEL 9.8 MG/DL (8.5-10.1); CARBON DIOXIDE LEVEL 31 MEQ/L (21-32); CHLORIDE LEVEL 107 MEQ/L (98-107); CHOLESTEROL LEVEL 165 MG/DL (<200); CHOLESTEROL RISK RATIO 4.714 (<5); CREATININE FOR GFR 1.06 MG/DL (0.70-1.30); GLOMERULAR FILTRATION RATE > 60.0 (>56); GLUCOSE, FASTING 115 MG/DL (70-100); HDL CHOLESTEROL 35 MG/DL (>40); LDL CHOLESTEROL 95 MG/DL (<100); NON-HDL-C 130 MG/DL; POTASSIUM SERUM 4.3 MEQ/L (3.5-5.1); SODIUM LEVEL 141 MEQ/L (136-145); TOTAL 25(OH) VITAMIN D 30.4 NG/ML (30.0-100.0); TOTAL PROTEIN 7.2 GM/DL (6.4-8.2); TRIGLYCERIDES LEVEL 173 MG/DL (<150)
[2021-03-16 11:45] LABS: CREATININE, URINE 50.7 MG/DL; MALB URINE SIEMENS 6.8 MG/L; MAU/CREAT RATIO 13.4 MCG/MG (0.0-30.0)
== END ==
LOC: M PLALAB 07:48
PROVIDERS: ATTEND Nurse Practitioner Family
DX: E11.9 Type 2 diabetes mellitus without complications (principal)

== ENCOUNTER → 2021-06-29 | Outpatient (CLI) | payer OTHER ==
[~2021-06-29] MED LIST changes: -MONT10TA10 PO; +MONT10TA97 PO
== END ==
LOC: M PLAIMG 10:08
PROVIDERS: ATTEND Physician Assistant
DX: R05.9 Cough, unspecified (principal)

== ENCOUNTER → 2021-08-18 | Outpatient (CLI) | payer OTHER ==
[2021-08-18 11:32] LABS: HEMOGLOBIN 15.8 g/dl (13.5-17.5); MEAN CORPUSCULAR HEMOGLOBIN 31.6 pg (27.0-33.0); MEAN CORPUSCULAR HGB CONC 34.3 g/dl (32.0-36.5); PLATELET COUNT, AUTOMATED 196 10^3/uL (150-450)
[2021-08-18 11:44] LABS: PROTHROMBIN TIME 13.6 SECONDS (12.7-14.5)
== END ==
LOC: M PLALAB 08:46
PROVIDERS: ATTEND Dentist
DX: K74.69 Other cirrhosis of liver (principal)

== ENCOUNTER → 2021-09-14 | Outpatient (CLI) | payer OTHER ==
[2021-09-14 10:38] LABS: HEMOGLOBIN A1c 6.4 %
[2021-09-14 11:00] LABS: CREATININE, URINE 69.1 MG/DL; MALB URINE SIEMENS 10.3 MG/L; MAU/CREAT RATIO 14.9 MCG/MG (0.0-30.0)
[2021-09-14 11:20] LABS: ALBUMIN 4.3 GM/DL (3.2-5.2); ALT/SGPT 102 U/L (12-78); BILIRUBIN,TOTAL 1.5 MG/DL (0.2-1.0); BLOOD UREA NITROGEN 20 MG/DL (7-18); CALCIUM LEVEL 9.6 MG/DL (8.5-10.1); CARBON DIOXIDE LEVEL 29 MEQ/L (21-32); CHLORIDE LEVEL 105 MEQ/L (98-107); CHOLESTEROL LEVEL 146 MG/DL (<200); CHOLESTEROL RISK RATIO 4.055 (<5); CREATININE FOR GFR 1.12 MG/DL (0.70-1.30); FREE T4 1.25 NG/DL (0.76-1.46); GLOMERULAR FILTRATION RATE > 60.0 (>56); GLUCOSE, FASTING 113 MG/DL (70-100); HDL CHOLESTEROL 36 MG/DL (>40); LDL CHOLESTEROL 88 MG/DL (<100); NON-HDL-C 110 MG/DL; POTASSIUM SERUM 4.1 MEQ/L (3.5-5.1); SODIUM LEVEL 139 MEQ/L (136-145); TOTAL PROTEIN 7.3 GM/DL (6.4-8.2); TRIGLYCERIDES LEVEL 108 MG/DL (<150)
== END ==
LOC: M PLALAB 07:59
PROVIDERS: ATTEND Nurse Practitioner Family
DX: Z12.5 Encounter for screening for malignant neoplasm of prostate (principal)

== ENCOUNTER → 2021-11-28 | Outpatient (CLI) | payer OTHER, MEDICAID | LOC: M PAIN 10:30 | PROVIDERS: ATTEND Nurse Practitioner Family | DX: M79.18 Myalgia, other site (principal); E11.42 Type 2 diabetes mellitus with diabetic polyneuropathy; E78.5 Hyperlipidemia, unspecified; E03.9 Hypothyroidism, unspecified; K21.9 Gastro-esophageal reflux disease without esophagitis; G44.009 Cluster headache syndrome, unspecified, not intractable; I10 Essential (primary) hypertension; F14.21 Cocaine dependence, in remission; F41.1 Generalized anxiety disorder; K76.0 Fatty (change of) liver, not elsewhere classified; B02.9 Zoster without complications; Z86.010 Personal history of colon polyps; Z87.891 Personal history of nicotine dependence; Z98.1 Arthrodesis status; Z79.890 Hormone replacement therapy; Z79.891 Long term (current) use of opiate analgesic; Z79.899 Other long term (current) drug therapy; Z79.84 Long term (current) use of oral hypoglycemic drugs; Z88.8 Allergy status to other drugs, medicaments and biological substances; Z91.040 Latex allergy status ==

== ENCOUNTER → 2022-03-17 | Outpatient (CLI) | payer OTHER, MEDICAID ==
[2022-03-17 11:53] LABS: BASO % 0.4 % (0.0-1.0); EOS # 0.1 10^3/uL (0.0-0.5); EOS % 1.1 % (0.0-3.0); HEMATOCRIT 49.4 % (42.0-52.0); HEMOGLOBIN 16.7 g/dl (13.5-17.5); LYMPH # 2.8 10^3/uL (1.5-5.0); LYMPH % 34.6 % (24.0-44.0); MEAN CORPUSCULAR HEMOGLOBIN 31.7 pg (27.0-33.0); MEAN CORPUSCULAR HGB CONC 33.8 g/dl (32.0-36.5); MEAN CORPUSCULAR VOLUME 93.9 fl (80.0-96.0); MONO # 0.8 10^3/uL (0.0-0.8); MONO % 9.9 % (2.0-8.0); NEUTROPHILS # 4.4 10^3/uL (1.5-8.5); NEUTROPHILS % 53.8 % (36.0-66.0); PLATELET COUNT, AUTOMATED 198 10^3/uL (150-450); RED BLOOD COUNT 5.26 10^6/uL (4.30-6.10); WHITE BLOOD COUNT 8.2 10^3/uL (4.0-10.0)
[2022-03-17 12:40] LABS: ALBUMIN 4.2 GM/DL (3.2-5.2); ALT/SGPT 71 U/L (12-78); BILIRUBIN,TOTAL 1.2 MG/DL (0.2-1.0); BLOOD UREA NITROGEN 20 MG/DL (7-18); CALCIUM LEVEL 9.9 MG/DL (8.5-10.1); CARBON DIOXIDE LEVEL 29 MEQ/L (21-32); CHLORIDE LEVEL 103 MEQ/L (98-107); CHOLESTEROL LEVEL 183 MG/DL (<200); CHOLESTEROL RISK RATIO 4.815 (<5); CREATININE FOR GFR 1.14 MG/DL (0.70-1.30); FREE T4 1.15 NG/DL (0.76-1.46); GLOMERULAR FILTRATION RATE > 60.0 (>56); GLUCOSE, FASTING 125 MG/DL (70-100); HDL CHOLESTEROL 38 MG/DL (>40); LDL CHOLESTEROL 112 MG/DL (<100); NON-HDL-C 145 MG/DL; POTASSIUM SERUM 4.1 MEQ/L (3.5-5.1); SODIUM LEVEL 135 MEQ/L (136-145); TOTAL PROTEIN 7.4 GM/DL (6.4-8.2); TRIGLYCERIDES LEVEL 166 MG/DL (<150)
[2022-03-17 12:59] LABS: CREATININE, URINE 95.8 MG/DL; MALB URINE SIEMENS 8.1 MG/L; MAU/CREAT RATIO 8.4 MCG/MG (0.0-30.0)
[2022-03-17 13:14] LABS: TOTAL 25(OH) VITAMIN D 34.5 NG/ML (30.0-100.0)
== END ==
LOC: M PLALAB 07:34
PROVIDERS: ATTEND Nurse Practitioner Family
DX: E55.9 Vitamin D deficiency, unspecified (principal)

== ENCOUNTER → 2022-03-24 | Outpatient (CLI) | payer OTHER | LOC: M PLALAB 12:31 | PROVIDERS: ATTEND Nurse Practitioner Family | DX: M47.27 Other spondylosis with radiculopathy, lumbosacral region (principal) ==

== ENCOUNTER → 2022-04-02 | Outpatient (CLI) | payer MEDICAID, OTHER | LOC: M LABSMTC 10:01 | PROVIDERS: ATTEND Anesthesiology | DX: Z01.812 Encounter for preprocedural laboratory examination (principal); Z20.822 Contact with and (suspected) exposure to COVID-19 ==

== ENCOUNTER → 2022-04-06 | Outpatient (CLI) | payer OTHER, MEDICAID | LOC: M LABSMTC 10:58 | PROVIDERS: ATTEND Anesthesiology | DX: Z01.812 Encounter for preprocedural laboratory examination (principal); Z20.822 Contact with and (suspected) exposure to COVID-19 ==

== ENCOUNTER → 2022-04-08 | Outpatient (CLI) | payer OTHER | LOC: M RAD 08:59 | PROVIDERS: ATTEND Nurse Practitioner Family | DX: M47.27 Other spondylosis with radiculopathy, lumbosacral region (principal) ==

== ENCOUNTER → 2022-04-11 | Outpatient (CLI) | payer OTHER, MEDICAID ==
[~2022-04-11] MED LIST changes: +BUPIVACAINE HCL 0.25% 10ML VIAL As Ordered ONE; +BUPIVACAINE HCL 0.25% 30ML VIAL As Ordered ONE; +TRIAMCINOLONE ACETONIDE SUSP 40 MG/ML VIAL (J3301) As Ordered ONE; +diazePAM 2 MG TAB As Ordered ONE
== END ==
LOC: M PAIN 15:30
PROVIDERS: ATTEND Anesthesiology
DX: M79.18 Myalgia, other site (principal); E11.42 Type 2 diabetes mellitus with diabetic polyneuropathy; E78.5 Hyperlipidemia, unspecified; E03.9 Hypothyroidism, unspecified; G44.009 Cluster headache syndrome, unspecified, not intractable; K21.9 Gastro-esophageal reflux disease without esophagitis; I10 Essential (primary) hypertension; F14.21 Cocaine dependence, in remission; K76.0 Fatty (change of) liver, not elsewhere classified; Z86.010 Personal history of colon polyps; F41.1 Generalized anxiety disorder; Z87.891 Personal history of nicotine dependence; Z87.81 Personal history of (healed) traumatic fracture; Z79.890 Hormone replacement therapy; Z79.84 Long term (current) use of oral hypoglycemic drugs; Z79.891 Long term (current) use of opiate analgesic; Z88.8 Allergy status to other drugs, medicaments and biological substances; Z91.040 Latex allergy status
CPT/HCPCS: 20553; J3301

== ENCOUNTER → 2022-05-04 | Outpatient (CLI) | payer OTHER, MEDICAID ==
[~2022-05-04] MED LIST changes: -BUPIVACAINE HCL 0.25% 10ML VIAL As Ordered ONE; -BUPIVACAINE HCL 0.25% 30ML VIAL As Ordered ONE; -TRIAMCINOLONE ACETONIDE SUSP 40 MG/ML VIAL (J3301) As Ordered ONE; -diazePAM 2 MG TAB As Ordered ONE
== END ==
LOC: M PAIN 09:15
PROVIDERS: ATTEND Anesthesiology
DX: Z53.21 Procedure and treatment not carried out due to patient leaving prior to being seen by health care provider (principal)

== ENCOUNTER → 2022-05-17 | Outpatient (CLI) | payer OTHER | LOC: M LABSMTC 09:09 | PROVIDERS: ATTEND Anesthesiology | DX: Z01.818 Encounter for other preprocedural examination (principal); Z11.52 Encounter for screening for COVID-19 ==

== ENCOUNTER 2022-05-22 06:47 | Day surgery (SDC) | payer OTHER ==
[~2022-05-22] VITALS: Ht 177.8 cm; Wt 96.2 kg
[~2022-05-22 06:47] MED LIST changes: +NS 1,000 ML IV ONE
[2022-05-22] MEDS ORDERED: fentaNYL 100 MCG/2 ML INJECTION As Ordered ONE (07:22)
[2022-05-22] MEDS ORDERED: LIDOCAINE 2% 100MG/5ML SDV (FOR ANES.) As Ordered ONE (07:22)
[2022-05-22] MEDS ORDERED: propofoL 200 MG/20 ML VIAL As Ordered ONE (07:26)
[2022-05-22 09:12] VITALS: BP 119/76
== END 2022-05-22 09:13 | disposition home or self-care (01) ==
LOC: M OPP 06:47
PROVIDERS: ATTEND Surgery
DX: Z86.010 Personal history of colon polyps (principal); Z80.0 Family history of malignant neoplasm of digestive organs; K63.5 Polyp of colon; K64.9 Unspecified hemorrhoids; K22.89 Other specified disease of esophagus; K31.A11 Gastric intestinal metaplasia without dysplasia, involving the antrum; K21.9 Gastro-esophageal reflux disease without esophagitis; Z79.02 Long term (current) use of antithrombotics/antiplatelets; Z79.84 Long term (current) use of oral hypoglycemic drugs; Z79.891 Long term (current) use of opiate analgesic; Z79.899 Other long term (current) drug therapy; Z91.030 Bee allergy status; Z91.040 Latex allergy status; Z91.048 Other nonmedicinal substance allergy status; E03.9 Hypothyroidism, unspecified; I10 Essential (primary) hypertension; E78.00 Pure hypercholesterolemia, unspecified; E11.9 Type 2 diabetes mellitus without complications; K74.60 Unspecified cirrhosis of liver; G43.909 Migraine, unspecified, not intractable, without status migrainosus; Z87.891 Personal history of nicotine dependence
CPT/HCPCS: 43239; 45380; 88305; J3010

== ENCOUNTER → 2022-09-22 | Outpatient (CLI) | payer OTHER ==
[~2022-09-22] MED LIST changes: -NS 1,000 ML IV ONE
[2022-09-22 11:31] LABS: BASO # 0.1 10^3/uL (0.0-0.2); BASO % 0.7 % (0.0-1.0); EOS # 0.2 10^3/uL (0.0-0.5); EOS % 2.5 % (0.0-3.0); HEMATOCRIT 48.9 % (42.0-52.0); HEMOGLOBIN 16.9 g/dl (13.5-17.5); LYMPH # 2.7 10^3/uL (1.5-5.0); MEAN CORPUSCULAR HEMOGLOBIN 32.1 pg (27.0-33.0); MEAN CORPUSCULAR HGB CONC 34.6 g/dl (32.0-36.5); MONO # 0.8 10^3/uL (0.0-0.8); MONO % 10.4 % (2.0-8.0); NEUTROPHILS # 3.6 10^3/uL (1.5-8.5); NEUTROPHILS % 49.3 % (36.0-66.0); PLATELET COUNT, AUTOMATED 198 10^3/uL (150-450); RED BLOOD COUNT 5.26 10^6/uL (4.30-6.10); WHITE BLOOD COUNT 7.3 10^3/uL (4.0-10.0)
[2022-09-22 11:51] LABS: HEMOGLOBIN A1c 6.5 % (4.0-6.0)
[2022-09-22 12:04] LABS: CREATININE, URINE 72.6 MG/DL; MAU/CREAT RATIO 6.8 MCG/MG (0.0-30.0)
[2022-09-22 12:05] LABS: ALBUMIN 4.4 G/DL (3.2-5.2); ALKALINE PHOSPHATASE 79 U/L (46-116); ALT/SGPT 131 U/L (7.0-40); AST/SGOT 55 U/L (<34); BILIRUBIN,TOTAL 1.5 MG/DL (0.3-1.2); BLOOD UREA NITROGEN 19 MG/DL (9-23); CARBON DIOXIDE LEVEL 29 MMOL/L (20-31); CHLORIDE LEVEL 104 MMOL/L (98-107); CHOLESTEROL LEVEL 169 MG/DL (<200); CHOLESTEROL RISK RATIO 4.15 (<5); CREATININE FOR GFR 0.99 MG/DL (0.70-1.30); GLOMERULAR FILTRATION RATE > 60.0 (>56); GLUCOSE, FASTING 126 MG/DL (60-100); HDL CHOLESTEROL 40.7 MG/DL (>40); LDL CHOLESTEROL 96.7 MG/DL (<100); NON-HDL-C 128.3 MG/DL; POTASSIUM SERUM 4.2 MMOL/L (3.5-5.1); SODIUM LEVEL 139 MMOL/L (136-145); TRIGLYCERIDES LEVEL 158 MG/DL (<150)
[2022-09-22 12:06] LABS: FREE T4 1.42 NG/DL (0.89-1.76); THYROID STIMULATING HORMONE 2.288 uIU/ML (0.55-4.78)
[2022-09-22 12:07] LABS: VITAMIN B12 LEVEL 1157 PG/ML (211-911)
== END ==
LOC: M PLALAB 07:53
PROVIDERS: ATTEND Nurse Practitioner Family
DX: E11.9 Type 2 diabetes mellitus without complications (principal); I10 Essential (primary) hypertension; E78.5 Hyperlipidemia, unspecified; E03.9 Hypothyroidism, unspecified; Z12.5 Encounter for screening for malignant neoplasm of prostate; E53.8 Deficiency of other specified B group vitamins

== ENCOUNTER → 2022-12-13 | Outpatient (CLI) | payer OTHER ==
[2022-12-13 13:23] LABS: BASO # 0.1 10^3/uL (0.0-0.2); BASO % 0.7 % (0.0-1.0); EOS # 0.1 10^3/uL (0.0-0.5); EOS % 1.5 % (0.0-3.0); HEMATOCRIT 50.1 % (42.0-52.0); HEMOGLOBIN 17.2 g/dl (13.5-17.5); LYMPH # 2.4 10^3/uL (1.5-5.0); MEAN CORPUSCULAR HEMOGLOBIN 31.4 pg (27.0-33.0); MEAN CORPUSCULAR HGB CONC 34.3 g/dl (32.0-36.5); MEAN CORPUSCULAR VOLUME 91.6 fl (80.0-96.0); MONO # 0.9 10^3/uL (0.0-0.8); MONO % 11.7 % (2.0-8.0); NEUTROPHILS % 53.7 % (36.0-66.0); PLATELET COUNT, AUTOMATED 211 10^3/uL (150-450); RED BLOOD COUNT 5.47 10^6/uL (4.30-6.10); WHITE BLOOD COUNT 7.5 10^3/uL (4.0-10.0)
[2022-12-13 13:50] LABS: LIPASE 38 U/L (12-53)
[2022-12-13 13:52] LABS: ALBUMIN 4.4 G/DL (3.2-5.2); ALKALINE PHOSPHATASE 84 U/L (46-116); ALT/SGPT 125 U/L (7.0-40); AST/SGOT 48 U/L (<34); BILIRUBIN,TOTAL 1.6 MG/DL (0.3-1.2); BLOOD UREA NITROGEN 15 MG/DL (9-23); CALCIUM LEVEL 9.9 MG/DL (8.5-10.1); CARBON DIOXIDE LEVEL 28 MMOL/L (20-31); CHLORIDE LEVEL 106 MMOL/L (98-107); CREATININE FOR GFR 0.91 MG/DL (0.70-1.30); GLOMERULAR FILTRATION RATE > 60.0 (>56); GLUCOSE, FASTING 140 MG/DL (60-100); IRON (FE) 153 UG/DL (65-175); POTASSIUM SERUM 4.3 MMOL/L (3.5-5.1); SODIUM LEVEL 141 MMOL/L (136-145)
[2022-12-13 13:54] LABS: C REACTIVE PROTEIN QUANTITATIV < 0.40 MG/DL (<1.0)
[2022-12-13 13:56] LABS: FERRITIN 105.4 NG/ML (10.5-307.3)
[2022-12-13 14:04] LABS: ERYTHROCYTE SEDIMENTATION RATE 11 mm/hr (0-20)
== END ==
LOC: M PLALAB 10:21
PROVIDERS: ATTEND Nurse Practitioner Family
DX: K76.0 Fatty (change of) liver, not elsewhere classified (principal); R10.0 Acute abdomen

== ENCOUNTER → 2022-12-13 | Outpatient (CLI) | payer MEDICAID, OTHER ==
[2022-12-13 11:52] LABS: ALBUMIN 4.2 G/DL (3.2-5.2); BILIRUBIN,DIRECT 0.4 MG/DL (<0.4); BILIRUBIN,TOTAL 1.4 MG/DL (0.3-1.2); TOTAL PROTEIN 6.8 G/DL (5.7-8.2)
== END ==
LOC: M PLALAB 07:59
PROVIDERS: ATTEND Nurse Practitioner Family
DX: R74.8 Abnormal levels of other serum enzymes (principal)

== ENCOUNTER → 2023-03-26 | Outpatient (CLI) | payer OTHER ==
[2023-03-26 11:29] LABS: BASO # 0.1 10^3/uL (0.0-0.2); BASO % 0.6 % (0.0-1.0); EOS # 0.1 10^3/uL (0.0-0.5); HEMOGLOBIN 16.9 g/dl (13.5-17.5); LYMPH # 2.5 10^3/uL (1.5-5.0); LYMPH % 29.2 % (24.0-44.0); MEAN CORPUSCULAR HEMOGLOBIN 31.8 pg (27.0-33.0); MEAN CORPUSCULAR HGB CONC 33.8 g/dl (32.0-36.5); MONO # 0.7 10^3/uL (0.0-0.8); MONO % 8.4 % (2.0-8.0); NEUTROPHILS # 5.2 10^3/uL (1.5-8.5); NEUTROPHILS % 60.6 % (36.0-66.0); PLATELET COUNT, AUTOMATED 178 10^3/uL (150-450); RED BLOOD COUNT 5.32 10^6/uL (4.30-6.10); WHITE BLOOD COUNT 8.6 10^3/uL (4.0-10.0)
[2023-03-27 04:56] LABS: TOTAL 25(OH) VITAMIN D 33.9 NG/ML (20.0-100.0)
[2023-03-27 04:57] LABS: FREE T4 1.35 NG/DL (0.89-1.76); THYROID STIMULATING HORMONE 2.689 uIU/ML (0.55-4.78)
[2023-03-27 04:58] LABS: VITAMIN B12 LEVEL 1233 PG/ML (211-911)
[2023-03-27 05:00] LABS: CREATININE, URINE 25.8 MG/DL
[2023-03-27 05:02] LABS: ALBUMIN 4.4 G/DL (3.2-5.2); ALKALINE PHOSPHATASE 86 U/L (46-116); ALT/SGPT 170 U/L (7.0-40); AST/SGOT 63 U/L (<34); BILIRUBIN,TOTAL 1.4 MG/DL (0.3-1.2); BLOOD UREA NITROGEN 20 MG/DL (9-23); CALCIUM LEVEL 10.3 MG/DL (8.5-10.1); CARBON DIOXIDE LEVEL 29 MMOL/L (20-31); CHLORIDE LEVEL 102 MMOL/L (98-107); CHOLESTEROL LEVEL 176 MG/DL (<200); CHOLESTEROL RISK RATIO 4.74 (<5); CREATININE FOR GFR 1.03 MG/DL (0.70-1.30); GLOMERULAR FILTRATION RATE > 60.0 (>56); GLUCOSE, FASTING 167 MG/DL (60-100); HDL CHOLESTEROL 37.1 MG/DL (>40); LDL CHOLESTEROL 92.7 MG/DL (<100); MAU/CREAT RATIO 15.5 MCG/MG (0.0-30.0); NON-HDL-C 138.9 MG/DL; POTASSIUM SERUM 4.9 MMOL/L (3.5-5.1); SODIUM LEVEL 139 MMOL/L (136-145); TOTAL PROTEIN 7.1 G/DL (5.7-8.2); TRIGLYCERIDES LEVEL 231 MG/DL (<150)
== END ==
LOC: M PLALAB 08:10
PROVIDERS: ATTEND Nurse Practitioner Family
DX: E78.5 Hyperlipidemia, unspecified (principal)

== ENCOUNTER → 2023-05-04 | Outpatient (CLI) | payer OTHER, MEDICAID | LOC: M SOG 07:50 | PROVIDERS: ATTEND Orthopaedic Surgery | DX: M25.562 Pain in left knee (principal) ==

== ENCOUNTER → 2023-05-19 | Outpatient (CLI) | payer OTHER | LOC: M RAD 08:19 | PROVIDERS: ATTEND Orthopaedic Surgery | DX: G57.32 Lesion of lateral popliteal nerve, left lower limb (principal) ==

== ENCOUNTER → 2023-09-26 | Outpatient (CLI) | payer OTHER ==
[~2023-09-26] MED LIST changes: +IRBE150T27; -IRBE150T7; +IRBE75TA11 PO; -IRBE75TA4 PO
[2023-09-26 12:36] LABS: BASO # 0.1 10^3/uL (0.0-0.2); BASO % 0.7 % (0.0-1.0); EOS # 0.1 10^3/uL (0.0-0.5); EOS % 1.6 % (0.0-3.0); HEMATOCRIT 49.2 % (42.0-52.0); LYMPH # 2.3 10^3/uL (1.5-5.0); LYMPH % 34.1 % (24.0-44.0); MEAN CORPUSCULAR HEMOGLOBIN 31.8 pg (27.0-33.0); MEAN CORPUSCULAR HGB CONC 34.6 g/dl (32.0-36.5); MONO # 0.7 10^3/uL (0.0-0.8); MONO % 9.7 % (2.0-8.0); NEUTROPHILS # 3.6 10^3/uL (1.5-8.5); NEUTROPHILS % 53.8 % (36.0-66.0); PLATELET COUNT, AUTOMATED 145 10^3/uL (150-450); RED BLOOD COUNT 5.35 10^6/uL (4.30-6.10); WHITE BLOOD COUNT 6.7 10^3/uL (4.0-10.0)
[2023-09-26 12:51] LABS: HEMOGLOBIN A1c 7.4 % (4.0-6.0)
[2023-09-26 13:07] LABS: ALBUMIN 4.4 G/DL (3.2-5.2); ALKALINE PHOSPHATASE 85 U/L (46-116); ALT/SGPT 241 U/L (7.0-40); AST/SGOT 97 U/L (<34); BILIRUBIN,TOTAL 1.5 MG/DL (0.3-1.2); BLOOD UREA NITROGEN 22 MG/DL (9-23); CALCIUM LEVEL 10.2 MG/DL (8.5-10.1); CARBON DIOXIDE LEVEL 27 MMOL/L (20-31); CHLORIDE LEVEL 102 MMOL/L (98-107); CHOLESTEROL LEVEL 217 MG/DL (<200); CHOLESTEROL RISK RATIO 5.66 (<5); CREATININE FOR GFR 1.09 MG/DL (0.70-1.30); GLOMERULAR FILTRATION RATE > 60.0 (>56); GLUCOSE, FASTING 148 MG/DL (60-100); HDL CHOLESTEROL 38.3 MG/DL (>40); LDL CHOLESTEROL 136.5 MG/DL (<100); NON-HDL-C 178.7 MG/DL; POTASSIUM SERUM 4.2 MMOL/L (3.5-5.1); SODIUM LEVEL 137 MMOL/L (136-145); TOTAL PROTEIN 7.1 G/DL (5.7-8.2); TRIGLYCERIDES LEVEL 211 MG/DL (<150)
[2023-09-26 13:16] LABS: CREATININE, URINE 62.8 MG/DL; MAU/CREAT RATIO 7.9 MCG/MG (0.0-30.0); PSA SCREENING 2.35 NG/ML (< 4.00)
[2023-09-26 13:19] LABS: FREE T4 1.27 NG/DL (0.89-1.76)
[2023-09-26 13:20] LABS: THYROID STIMULATING HORMONE 3.065 uIU/ML (0.55-4.78); TOTAL 25(OH) VITAMIN D 31.9 NG/ML (20.0-100.0); VITAMIN B12 LEVEL 1294 PG/ML (211-911)
== END ==
LOC: M PLALAB 07:51
PROVIDERS: ATTEND Nurse Practitioner Family
DX: Z12.5 Encounter for screening for malignant neoplasm of prostate (principal); K76.0 Fatty (change of) liver, not elsewhere classified; E78.5 Hyperlipidemia, unspecified; E03.9 Hypothyroidism, unspecified

== ENCOUNTER → 2023-11-30 | Outpatient (CLI) | payer OTHER ==
[2023-11-30 11:11] LABS: BASO % 0.7 % (0.0-1.0); EOS # 0.1 10^3/uL (0.0-0.5); EOS % 2.3 % (0.0-3.0); HEMATOCRIT 49.3 % (42.0-52.0); HEMOGLOBIN 16.8 g/dl (13.5-17.5); LYMPH # 2.2 10^3/uL (1.5-5.0); LYMPH % 35.7 % (24.0-44.0); MEAN CORPUSCULAR HGB CONC 34.1 g/dl (32.0-36.5); MEAN CORPUSCULAR VOLUME 93.9 fl (80.0-96.0); MONO # 0.7 10^3/uL (0.0-0.8); MONO % 11.4 % (2.0-8.0); NEUTROPHILS % 49.6 % (36.0-66.0); PLATELET COUNT, AUTOMATED 159 10^3/uL (150-450); RED BLOOD COUNT 5.25 10^6/uL (4.30-6.10); WHITE BLOOD COUNT 6.1 10^3/uL (4.0-10.0)
[2023-11-30 11:37] LABS: ALBUMIN 4.1 G/DL (3.2-5.2); ALKALINE PHOSPHATASE 85 U/L (46-116); ALT/SGPT 84 U/L (7.0-40); AST/SGOT 37 U/L (<34); BILIRUBIN,TOTAL 1.4 MG/DL (0.3-1.2); BLOOD UREA NITROGEN 19 MG/DL (9-23); CALCIUM LEVEL 9.9 MG/DL (8.3-10.6); CARBON DIOXIDE LEVEL 29 MMOL/L (20-31); CHLORIDE LEVEL 105 MMOL/L (98-107); CREATININE FOR GFR 1.06 MG/DL (0.70-1.30); GLOMERULAR FILTRATION RATE > 60.0 (>49); GLUCOSE, FASTING 129 MG/DL (74-106); POTASSIUM SERUM 4.4 MMOL/L (3.5-5.1); SODIUM LEVEL 137 MMOL/L (136-145); TOTAL PROTEIN 6.8 G/DL (5.7-8.2)
== END ==
LOC: M LAB 07:39 → M PLALAB 07:39
PROVIDERS: ATTEND Nurse Practitioner Family
DX: E11.9 Type 2 diabetes mellitus without complications (principal)

== ENCOUNTER → 2024-04-15 | Outpatient (CLI) | payer OTHER ==
[~2024-04-15] MED LIST changes: +GABA-1172 PO; -GABA-282 PO
== END ==
LOC: M SOG 07:48
PROVIDERS: ATTEND Physician Assistant
DX: M25.512 Pain in left shoulder (principal)

== ENCOUNTER → 2024-05-22 | Outpatient (CLI) | payer OTHER ==
[2024-05-22 11:22] LABS: BASO % 0.6 % (0.0-1.0); EOS # 0.2 10^3/uL (0.0-0.5); EOS % 2.4 % (0.0-3.0); HEMATOCRIT 47.1 % (42.0-52.0); HEMOGLOBIN 15.8 g/dl (13.5-17.5); LYMPH # 2.4 10^3/uL (1.5-5.0); LYMPH % 37.3 % (24.0-44.0); MEAN CORPUSCULAR HEMOGLOBIN 31.7 pg (27.0-33.0); MEAN CORPUSCULAR HGB CONC 33.5 g/dl (32.0-36.5); MEAN CORPUSCULAR VOLUME 94.6 fl (80.0-96.0); MONO # 0.7 10^3/uL (0.0-0.8); MONO % 10.3 % (2.0-8.0); NEUTROPHILS # 3.1 10^3/uL (1.5-8.5); NEUTROPHILS % 49.1 % (36.0-66.0); PLATELET COUNT, AUTOMATED 165 10^3/uL (150-450); RED BLOOD COUNT 4.98 10^6/uL (4.30-6.10); WHITE BLOOD COUNT 6.3 10^3/uL (4.0-10.0)
[2024-05-22 11:35] LABS: HEMOGLOBIN A1c 6.1 % (4.0-6.0)
[2024-05-22 11:47] LABS: ALBUMIN 3.9 G/DL (3.2-5.2); ALKALINE PHOSPHATASE 83 U/L (40-129); ALT/SGPT 84 U/L (7.0-40); AST/SGOT 36 U/L (<34); BLOOD UREA NITROGEN 21 MG/DL (9-23); CALCIUM LEVEL 9.9 MG/DL (8.3-10.6); CARBON DIOXIDE LEVEL 30 MMOL/L (20-31); CHLORIDE LEVEL 104 MMOL/L (98-107); CHOLESTEROL LEVEL 191 MG/DL (<200); CHOLESTEROL RISK RATIO 5.47 (<5); CREATININE FOR GFR 1.04 MG/DL (0.70-1.30); CREATININE, URINE 53.4 MG/DL; GLOMERULAR FILTRATION RATE > 60.0 (>49); GLUCOSE, FASTING 140 MG/DL (74-106); HDL CHOLESTEROL 34.9 MG/DL (>40); LDL CHOLESTEROL 114.7 MG/DL (<100); NON-HDL-C 156.1 MG/DL; POTASSIUM SERUM 4.2 MMOL/L (3.5-5.1); SODIUM LEVEL 141 MMOL/L (136-145); TOTAL PROTEIN 7.2 G/DL (5.7-8.2); TRIGLYCERIDES LEVEL 207 MG/DL (<150)
[2024-05-22 11:48] LABS: MALB URINE SIEMENS < 3.0 MG/L
[2024-05-22 11:49] LABS: THYROID STIMULATING HORMONE 2.991 uIU/ML (0.55-4.78)
[2024-05-22 11:50] LABS: VITAMIN B12 LEVEL 1084 PG/ML (211-911)
== END ==
LOC: M PLALAB 07:38
PROVIDERS: ATTEND Nurse Practitioner Family
DX: E11.9 Type 2 diabetes mellitus without complications (principal)

== ENCOUNTER 2024-06-02 06:51 | Outpatient (RCR) | payer OTHER | END 2024-06-03 | LOC: M PT 06:51 | PROVIDERS: ATTEND Physician Assistant | DX: M25.512 Pain in left shoulder (principal) ==

== ENCOUNTER 2024-07-03 07:00 | Outpatient (RCR) | payer OTHER | END 2024-07-04 | LOC: M PT 07:00 | PROVIDERS: ATTEND Physician Assistant | DX: M25.512 Pain in left shoulder (principal) ==

== ENCOUNTER → 2024-07-18 | Outpatient (CLI) | payer OTHER | LOC: M WHC 08:52 | PROVIDERS: ATTEND Nurse Practitioner Family | DX: K74.60 Unspecified cirrhosis of liver (principal) ==

== ENCOUNTER 2024-07-24 07:00 | Outpatient (RCR) | payer OTHER | END 2024-08-01 | LOC: M PT 07:00 | PROVIDERS: ATTEND Physician Assistant | DX: M25.512 Pain in left shoulder (principal) ==

== ENCOUNTER → 2024-10-22 | Outpatient (CLI) | payer OTHER ==
[2024-10-22 10:23] LABS: BASO # 0.1 10^3/uL (0.0-0.2); BASO % 0.9 % (0.0-1.0); EOS # 0.1 10^3/uL (0.0-0.5); EOS % 2.4 % (0.0-3.0); HEMATOCRIT 47.5 % (42.0-52.0); HEMOGLOBIN 16.2 g/dl (13.5-17.5); LYMPH # 2.2 10^3/uL (1.5-5.0); LYMPH % 38.5 % (24.0-44.0); MEAN CORPUSCULAR HEMOGLOBIN 31.9 pg (27.0-33.0); MEAN CORPUSCULAR HGB CONC 34.1 g/dl (32.0-36.5); MEAN CORPUSCULAR VOLUME 93.5 fl (80.0-96.0); MONO # 0.6 10^3/uL (0.0-0.8); MONO % 9.8 % (2.0-8.0); NEUTROPHILS # 2.8 10^3/uL (1.5-8.5); NEUTROPHILS % 48.2 % (36.0-66.0); PLATELET COUNT, AUTOMATED 154 10^3/uL (150-450); RED BLOOD COUNT 5.08 10^6/uL (4.30-6.10); WHITE BLOOD COUNT 5.8 10^3/uL (4.0-10.0)
[2024-10-22 10:52] LABS: HEMOGLOBIN A1c 6.9 % (4.0-6.0); PSA SCREENING 2.19 NG/ML (< 4.00)
[2024-10-22 10:54] LABS: CREATININE, URINE 45.1 MG/DL; MALB URINE SIEMENS < 3.0 MG/L
[2024-10-22 10:55] LABS: FERRITIN 120.9 NG/ML (10.5-307.3)
[2024-10-22 10:56] LABS: THYROID STIMULATING HORMONE 1.619 uIU/ML (0.55-4.78)
[2024-10-22 10:57] LABS: ALBUMIN 4.4 G/DL (3.2-5.2); ALKALINE PHOSPHATASE 79 U/L (40-129); ALT/SGPT 125 U/L (7.0-40); AST/SGOT 55 U/L (<34); BILIRUBIN,TOTAL 1.5 MG/DL (0.3-1.2); BLOOD UREA NITROGEN 21 MG/DL (9-23); CALCIUM LEVEL 9.7 MG/DL (8.3-10.6); CARBON DIOXIDE LEVEL 28 MMOL/L (20-31); CHLORIDE LEVEL 103 MMOL/L (98-107); CHOLESTEROL LEVEL 174 MG/DL (<200); CREATININE FOR GFR 0.99 MG/DL (0.70-1.30); FREE T4 1.59 NG/DL (0.89-1.76); GLOMERULAR FILTRATION RATE 87.2 (>49); GLUCOSE, FASTING 112 MG/DL (74-106); HDL CHOLESTEROL 35.5 MG/DL (>40); IRON (FE) 136 UG/DL (65-175); LDL CHOLESTEROL 110.7 MG/DL (<100); NON-HDL-C 138.5 MG/DL; SODIUM LEVEL 140 MMOL/L (136-145); TRIGLYCERIDES LEVEL 139 MG/DL (<150); VITAMIN B12 LEVEL 1266 PG/ML (211-911)
== END ==
LOC: M PLALAB 07:32
PROVIDERS: ATTEND Nurse Practitioner Family
DX: E11.9 Type 2 diabetes mellitus without complications (principal); K74.60 Unspecified cirrhosis of liver; Z12.5 Encounter for screening for malignant neoplasm of prostate; E03.9 Hypothyroidism, unspecified; E55.9 Vitamin D deficiency, unspecified; E78.5 Hyperlipidemia, unspecified; E53.8 Deficiency of other specified B group vitamins

== ENCOUNTER → 2025-05-25 | Outpatient (CLI) | payer OTHER ==
[2025-05-25 11:58] LABS: BASO # 0.0 10^3/uL (0.0-0.2); BASO % 0.6 % (0.0-1.0); EOS # 0.1 10^3/uL (0.0-0.5); EOS % 1.8 % (0.0-3.0); LYMPH # 2.1 10^3/uL (1.5-5.0); LYMPH % 30.3 % (24.0-44.0); MONO # 0.6 10^3/uL (0.0-0.8); MONO % 8.7 % (2.0-8.0); NEUTROPHILS # 4.0 10^3/uL (1.5-8.5); NEUTROPHILS % 58.5 % (36.0-66.0); PLATELET COUNT, AUTOMATED 189 10^3/uL (150-450)
[2025-05-25 12:26] LABS: IRON (FE) 156 UG/DL (65-175); MALB URINE SIEMENS 5.0 MG/L
[2025-05-25 12:29] LABS: ALT/SGPT 75 U/L (7.0-40); AST/SGOT 36 U/L (<34); CALCIUM LEVEL 9.8 MG/DL (8.3-10.6); CARBON DIOXIDE LEVEL 28 MMOL/L (20-31); CHLORIDE LEVEL 104 MMOL/L (98-107); CHOLESTEROL LEVEL 174 MG/DL (<200); CHOLESTEROL RISK RATIO 4.87 (<5); CREATININE FOR GFR 1.07 MG/DL (0.70-1.30); GLOMERULAR FILTRATION RATE 79.0 (>49); LDL CHOLESTEROL 90.5 MG/DL (<100); MAGNESIUM LEVEL 2.3 MG/DL (1.8-2.4); NON-HDL-C 138.3 MG/DL; POTASSIUM SERUM 4.2 MMOL/L (3.5-5.1); SODIUM LEVEL 141 MMOL/L (136-145); TRIGLYCERIDES LEVEL 239 MG/DL (<150)
[2025-05-25 12:30] LABS: FREE T4 1.46 NG/DL (0.89-1.76)
[2025-05-25 12:31] LABS: CREATININE, URINE 56.7 MG/DL; MAU/CREAT RATIO 8.8 MCG/MG (0.0-30.0)
[2025-05-25 12:36] LABS: VITAMIN B12 LEVEL 675 PG/ML (211-911)
== END ==
LOC: M PLALAB 07:52
PROVIDERS: ATTEND Nurse Practitioner Family
DX: K74.60 Unspecified cirrhosis of liver (principal); E55.9 Vitamin D deficiency, unspecified; E03.9 Hypothyroidism, unspecified; E78.5 Hyperlipidemia, unspecified; E11.9 Type 2 diabetes mellitus without complications; E53.8 Deficiency of other specified B group vitamins; I10 Essential (primary) hypertension